=== PATIENT | female | born 1985 | race Caucasian/White ===

== ENCOUNTER 2020-06-03 06:49 | Inpatient (IN) | payer BC, MEDICAID ==
[2020-05-27 14:46] LABS: BASOPHILS % (AUTO) 0.8 % (0-1); EOSINOPHILS # (AUTO) 0.2 X10'3 (0-0.9); EOSINOPHILS % (AUTO) 3.1 % (0-6); LYMPHOCYTES # (AUTO) 1.8 X10'3 (1.1-4.8); LYMPHOCYTES % (AUTO) 33.7 % (21-51); MEAN CORPUSCULAR HEMOGLOBIN 30.8 PG (27.0-31.0); MEAN CORPUSCULAR VOLUME 90.7 FL (78-98); MEAN PLATELET VOLUME 9.4 FL (7.4-10.4); MONOCYTES # (AUTO) 0.5 X10'3 (0-0.9); MONOCYTES % (AUTO) 10.1 % (2-12); NEUTROPHILS # (AUTO) 2.7 X10'3 (1.8-7.7); NEUTROPHILS % (AUTO) 52.3 % (42-75); PRE OP HEMATOCRIT 40.7 % (35.0-45.0); PRE OP HEMOGLOBIN 13.8 g/dL (12.0-16.0); PRE OP PLATELET COUNT 211 X10'3 (140-440); RED BLOOD COUNT 4.48 X10'6 (4.20-5.60); RED CELL DISTRIBUTION WIDTH 12.2 % (11.5-14.5)
[2020-05-27 14:58] LABS: PRE OP INR 1.1 INR; PRE OP PROTIME 10.9 SECONDS (9.0-12.0)
[2020-05-27 15:04] LABS: ALBUMIN 3.9 G/DL (3.4-5.0); ALKALINE PHOSPHATASE 77 IU/L (46-116); BLOOD UREA NITROGEN 11 MG/DL (7-18); BUN/CREATININE RATIO 10.7 (6.6-38.0); CHLORIDE 104 MMOL/L (99-107); CREATININE 1.03 MG/DL (0.40-0.90); PRE OP ALT 43 U/L (30-65); PRE OP ANION GAP 8 (8-16); PRE OP AST 18 U/L (10-37); PRE OP BILIRUB, TOTAL 0.3 MG/DL (0.0-1.0); PRE OP GLUCOSE 98 MG/DL (70-104); PRE OP POTASSIUM 4.2 MMOL/L (3.4-5.1); PRE OP SODIUM 139 MMOL/L (135-145); TOTAL CARBON DIOXIDE 27.3 MMOL/L (24-32); TOTAL PROTEIN 7.7 G/DL (6.4-8.2); eGFR 62 ML/MIN
[~2020-06-03] VITALS: Ht 167.6 cm; Wt 87.3 kg
[2020-06-03] VITALS (16 sets, daily range): BP systolic 106–139; BP diastolic 64–89
[~2020-06-03 06:49] MED LIST: ALBU18HF2 INH; BUPIVAcaine/PF 2.5 mg/ml (0.25%) 30ml vial ONE; LIDOcaine 1% 30ml preserv. free vial ONE; QUET25TA34 PO; VENL75CA61 PO; ceFOXitin 2GM-NS 100mL ADDvant 100 ML IV ONE; famotidine 20mg tablet PO ONE; ringers solution, lacted 1,000 ML IV SCH
[2020-06-03] MEDS ORDERED: MIDAZolam 1 MG/ML 5ML VIAL ONE (08:19)
[2020-06-03] MEDS ORDERED: fentaNYL /PF 50mcg/ml 5ml ampule ONE (08:20)
[2020-06-03] MEDS ORDERED: rocuronium 10mg/ml inj IV ONE (08:22)
[2020-06-03] MEDS ORDERED: propofol inj 20 ML IV ONE (08:29)
[2020-06-03] MEDS ORDERED: LIDOcaine 2% (20mg/ml) 5ml vial ONE (08:29)
[2020-06-03] MEDS ORDERED: dexamethasone sod phosphate 4mg/ml inj. ONE (08:30)
[2020-06-03] MEDS ORDERED: ondansetron/PF 4mg/2ml inj ONE (08:30)
[2020-06-03] MEDS ORDERED: INDOCYANINE GREEN 25 MG/10 ML VIAL IV ONE (09:24)
[2020-06-03] MEDS ORDERED: morphine 4 MG/ML inj SYRINge IV PRN (09:30)
[2020-06-03] MEDS ORDERED: ringers solution, lacted 1,000 ML IV SCH (09:30)
[2020-06-03] MEDS ORDERED: fentaNYL/PF 50MCG/1 ML 2ML syringe IV PRN ×2 (09:30)
[2020-06-03] MEDS ORDERED: ondansetron/PF 4mg/2ml inj IV PRN ×2 (09:30→12:45)
[2020-06-03] MEDS ORDERED: morphine 2 MG/ML inj. syringe IV PRN (09:30)
[2020-06-03] MEDS ORDERED: labetalol 20mg/4ml (5mg/ml) syringe IV PRN (09:30)
[2020-06-03] MEDS ORDERED: hydrALAZINE 20mg/ml inj. IV PRN (09:30)
[2020-06-03] MEDS ORDERED: neostigmine methylsulfate 1 MG/ML 10ml vial ONE (12:23)
[2020-06-03] MEDS ORDERED: glycopyrrolate 0.2mg/ml inj ONE (12:23)
--- NOTE | 2020-06-03 12:26 | NUR ---
Received from OR via , accompanied by Anesthesiologist DR QUINTERO and report given by Anesthesiolgist. AWAKENS TO VOICE. VITALS STABLE. INCISIONS DI. STATES PAIN TO ABD. VALENCIA WITH CLEAR URINE.
[2020-06-03] MEDS ORDERED: HYDROcodone/acetaminophen 5mg/325mg tablet PO PRN ×2 (12:45→22:00)
[2020-06-03] MEDS ORDERED: albuterol 2.5 MG/3 ML nebule NEB PRN (12:50)
--- NOTE | 2020-06-03 13:00 | NUR ---
Patient in room [facility]. I have received report from Benjamin JEREZ in recovery and had the opportunity to ask questions and assume patient care.
--- NOTE | 2020-06-03 13:06 | NUR ---
Report called to receiving nurse. Transferred via BED Belongings . Special Issues communicated to receiving nurse. AWAKE AND ORIENTED. VITALS STABLE. INCISIONS DI. STATES PAIN IMPROVING. TO SURGICAL RM 348A AT THIS TIME.
[2020-06-03] MEDS: ketorolac tromethamine 15mg/ml inj. IV SCH ×2 (14:12→19:44)
[2020-06-03] MEDS: Potassium Cl inj 20 MEQ in ringers solution, lacted 1,000 ML IV SCH ×3 (14:13→22:14)
[2020-06-03] MEDS: acetaminophen 325mg tablet PO SCH ×2 (14:13→19:45)
[2020-06-03] MEDS ORDERED: HYDROmorphone 1 mg/ml syringe IV ONE (16:20)
[2020-06-03] MEDS ORDERED: CADD PCA waste documentation MC PRN (16:20)
[2020-06-03] MEDS ORDERED: naloxone 0.4 mg/ml inj IV PRN (16:20)
--- NOTE | 2020-06-03 16:30 | NUR ---
Called Dr. Haas regarding patient having severe abdominal pain. Explained that vital signs are stable and despite tordol, tylenol and norco on board patient is still very painful. Received new orders for a one time dose of Dilaudid and to start a Dilaudid CADD.
[2020-06-03] MEDS: HYDROmorphone/NS 1 mg/ml CADD 50 ML IV SCH ×4 (17:00→23:00)
--- NOTE | 2020-06-03 17:29 | NUR ---
CADD set up and one time dose of Dilaudid IVP given and patient stated that she is much more comfortable and feels like she can tolerate her pain level now.
--- NOTE | 2020-06-03 18:23 | NUR ---
Problems reprioritized. Patient report given, questions answered & plan of care reviewed with Taty JEREZ.
--- NOTE | 2020-06-03 18:51 | NUR ---
Patient in room [facility]. I have received report from Mary JEREZ and had the opportunity to ask questions and assume patient care.
[2020-06-03] MEDS: heparin, porcine 5000 units/ml vial SQ SCH (19:46)
[2020-06-03] MEDS ORDERED: QUEtiapine 25mg tablet PO PRN (21:44)
[2020-06-04] MEDS: HYDROmorphone/NS 1 mg/ml CADD 50 ML IV SCH ×12 (01:00→23:00)
[2020-06-04] MEDS: acetaminophen 325mg tablet PO SCH ×4 (02:16→19:25)
[2020-06-04] MEDS: ketorolac tromethamine 15mg/ml inj. IV SCH ×4 (02:16→19:27)
[2020-06-04 04:00] VITALS: BP 110/73
[2020-06-04 06:02] LABS: BASOPHILS % (AUTO) 0.2 % (0-1); EOSINOPHILS % (AUTO) 0.1 % (0-6); HEMATOCRIT 37.3 % (35.0-45.0); HEMOGLOBIN 12.6 g/dl (12.0-16.0); LYMPHOCYTES # (AUTO) 1.7 X10'3 (1.1-4.8); MEAN CORPUSCULAR HEMOGLOBIN 30.7 PG (27.0-31.0); MEAN CORPUSCULAR HGB CONC 33.9 g/dL (33.0-36.5); MEAN CORPUSCULAR VOLUME 90.7 FL (78-98); MEAN PLATELET VOLUME 9.8 FL (7.4-10.4); MONOCYTES # (AUTO) 0.9 X10'3 (0-0.9); MONOCYTES % (AUTO) 8.3 % (2-12); NEUTROPHILS # (AUTO) 8.1 X10'3 (1.8-7.7); NEUTROPHILS % (AUTO) 75.4 % (42-75); PLATELET COUNT 183 X10'3 (140-440); RED BLOOD COUNT 4.12 X10'6 (4.20-5.60); RED CELL DISTRIBUTION WIDTH 12.1 % (11.5-14.5); WHITE BLOOD COUNT 10.8 X10'3 (4.5-11.0)
[2020-06-04 06:05] LABS: ANION GAP 5 (8-16); BLOOD UREA NITROGEN 7 MG/DL (7-18); BUN/CREATININE RATIO 9.5 (6.6-38.0); CALCIUM 8.4 MG/DL (8.5-10.1); CHLORIDE 107 MMOL/L (99-107); CREATININE 0.74 MG/DL (0.40-0.90); GLUCOSE 92 MG/DL (70-104); SODIUM 141 MMOL/L (135-145); TOTAL CARBON DIOXIDE 29.3 MMOL/L (24-32); eGFR 90 ML/MIN
--- NOTE | 2020-06-04 06:24 | NUR ---
Problems reprioritized. Patient report given, questions answered & plan of care reviewed with Thea JEREZ.
--- NOTE | 2020-06-04 06:51 | NUR ---
Patient in room [facility]. I have received report from MERI Posey and had the opportunity to ask questions and assume patient care.
[2020-06-04 07:27] VITALS: BP 125/78
[2020-06-04] MEDS: Potassium Cl inj 20 MEQ in ringers solution, lacted 1,000 ML IV SCH ×2 (07:40→16:59)
[2020-06-04] MEDS: heparin, porcine 5000 units/ml vial SQ SCH ×2 (07:41→19:29)
[2020-06-04] MEDS: venlafaxine XR 75mg capsule (Q24H) PO SCH (07:41)
[2020-06-04 18:00] VITALS: BP 102/63
--- NOTE | 2020-06-04 18:15 | NUR ---
Problems reprioritized. Patient report given, questions answered & plan of care reviewed with MERI Whitley.
--- NOTE | 2020-06-04 18:31 | NUR ---
Patient in room [facility]. I have received report from MERI Sidhu and had the opportunity to ask questions and assume patient care.
[2020-06-05] VITALS: BP 111/78
[2020-06-05] MEDS: Potassium Cl inj 20 MEQ in ringers solution, lacted 1,000 ML IV SCH ×2 (00:53→10:05)
[2020-06-05] MEDS: HYDROmorphone/NS 1 mg/ml CADD 50 ML IV SCH ×5 (01:00→09:00)
[2020-06-05] MEDS: acetaminophen 325mg tablet PO SCH ×2 (02:10→08:48)
[2020-06-05] MEDS: ketorolac tromethamine 15mg/ml inj. IV SCH ×2 (02:12→08:47)
[2020-06-05 06:00] VITALS: BP 116/71
--- NOTE | 2020-06-05 06:05 | NUR ---
Problems reprioritized. Patient report given, questions answered & plan of care reviewed with MERI Sidhu.
--- NOTE | 2020-06-05 06:18 | NUR ---
Patient in room [facility]. I have received report from MERI Whitley and had the opportunity to ask questions and assume patient care.
[2020-06-05 06:27] LABS: BASOPHILS % (AUTO) 0.4 % (0-1); EOSINOPHILS # (AUTO) 0.2 X10'3 (0-0.9); EOSINOPHILS % (AUTO) 3.5 % (0-6); HEMATOCRIT 37.5 % (35.0-45.0); HEMOGLOBIN 12.6 g/dl (12.0-16.0); LYMPHOCYTES # (AUTO) 2.6 X10'3 (1.1-4.8); LYMPHOCYTES % (AUTO) 40.5 % (21-51); MEAN CORPUSCULAR HEMOGLOBIN 30.7 PG (27.0-31.0); MEAN CORPUSCULAR HGB CONC 33.6 g/dL (33.0-36.5); MEAN CORPUSCULAR VOLUME 91.5 FL (78-98); MEAN PLATELET VOLUME 9.7 FL (7.4-10.4); MONOCYTES # (AUTO) 0.5 X10'3 (0-0.9); MONOCYTES % (AUTO) 7.4 % (2-12); NEUTROPHILS # (AUTO) 3.1 X10'3 (1.8-7.7); NEUTROPHILS % (AUTO) 48.2 % (42-75); PLATELET COUNT 174 X10'3 (140-440); RED BLOOD COUNT 4.09 X10'6 (4.20-5.60); RED CELL DISTRIBUTION WIDTH 12.2 % (11.5-14.5); WHITE BLOOD COUNT 6.5 X10'3 (4.5-11.0)
[2020-06-05 06:29] LABS: ALBUMIN 3.1 G/DL (3.4-5.0); ANION GAP 4 (8-16); BLOOD UREA NITROGEN 4 MG/DL (7-18); BUN/CREATININE RATIO 5.7 (6.6-38.0); CALCIUM 8.8 MG/DL (8.5-10.1); CHLORIDE 105 MMOL/L (99-107); GLUCOSE 77 MG/DL (70-104); SODIUM 140 MMOL/L (135-145); TOTAL CARBON DIOXIDE 30.6 MMOL/L (24-32); eGFR > 90 ML/MIN
[2020-06-05] MEDS: heparin, porcine 5000 units/ml vial SQ SCH (08:48)
[2020-06-05] MEDS: venlafaxine XR 75mg capsule (Q24H) PO SCH (08:48)
[2020-06-05 11:00] VITALS: BP 124/77
[2020-06-05] MEDS ORDERED: HYDR-3964 PO (13:03)
[2020-06-05] MEDS ORDERED: HYDROcodone/acetaminophen 5mg/325mg tablet PO PRN (13:05)
--- NOTE | 2020-06-06 13:49 | NUR ---
CASE MANAGEMENT DISCHARGE FOLLOW UP: Spoke with pt via telephone. Reports that she is doing okay, admits to some pain, describes it as "not bad" and that she has been primarily taking tylenol and ibuprofen for pain control; denies CP, SOB, fever/chills, s/sx of infection, bleeding, dizziness. Verbalizes understanding of s/sx requiring further evaluation/emergent assistance. Verbalizes understanding of new and current medications. Verbalizes compliance with MD discharge instructions. Verbalizes understanding of the importance in making/keeping follow-up appointments, states will call Dr Haas's office on Tuesday, does not require assistance. States no further questions/concerns at this time.
== END 2020-06-05 14:12 | disposition home or self-care (01) | DRG 331 ==
LOC: PAS IN 06:49 → UNDOADMIN 06:49 → EDSTATUS 08:45 → PAS IN 12:44 → SUR 3N 13:09
PROVIDERS: ADMIT Surgery; ATTEND Surgery
PROC: 8E0W4CZ Robotic Assisted Procedure of Trunk Region, Percutaneous Endoscopic Approach (ICD-10-PCS; 2020-06-03)
PROC: 0DTN4ZZ Resection of Sigmoid Colon, Percutaneous Endoscopic Approach (ICD-10-PCS; principal; 2020-06-03 08:18)
DX: K57.32 Diverticulitis of large intestine without perforation or abscess without bleeding (principal)
CPT/HCPCS: Z7506; Z7508; 36415; 80048; 80053; 82948; 84702; 85025; 85610; 85730; 86885; 86900; 86901; 87081; 94760; A4215; A4618; C1758; G0378; J0694; J1100; J1170; J1644; J1885; J2001; J2250; J2270; J2405; J2704; J2710; J3010; J3480; J3490; J7120; U0003